=== PATIENT | male | born 1950 | race Caucasian/White ===

== ENCOUNTER 2017-09-09 08:46 | Day surgery (SDC) | payer MEDICARE, OTHER ==
[~2017-09-09 08:46] MED LIST: Lactated Ringers 1,000 ML IV SCH
[2017-09-09] MEDS ORDERED: fentaNYL 100 MCG/2 ML SDV ONE (10:38)
[2017-09-09] MEDS ORDERED: Propofol 200 MG/20 ML SDV ONE (10:39)
--- NOTE | 2017-09-09 17:49 | OR ---
PREOPERATIVE DIAGNOSIS: Positive FIT test. POSTOPERATIVE DIAGNOSIS: Positive FIT test. PROCEDURE PERFORMED: Colonoscopy with polypectomy at 30 cm. INDICATION: The patient is a 67-year-old male who had a recent FIT test that was positive, presents for colonoscopy for further evaluation. PROCEDURE IN DETAIL: This was done in the endoscopy suite and sedation was given per Anesthesia. He was placed in left lateral position. First, a rectal exam was done, it was normal. Scope was introduced into the rectum, slowly advanced to the rectum, sigmoid, descending, transverse, and ascending colon until the cecum was reached. Upon reaching the cecum, scope was slowly withdrawn looking all mucosal surfaces on the way out. No mucosal abnormalities, lesions, or polyps were noted until approximately 30 cm where 1 moderate-sized polyp was found. It was removed with a hot loop forceps and sent to pathology. The remainder of the exam was normal. FINAL DIAGNOSIS: Polyp at 30 cm. BKD: 09/09/2017 12:07:00 MODL: 09/09/2017 17:23:47 /[id number]
== END 2017-09-09 13:10 | disposition home or self-care (01) ==
LOC: VM.SDS 08:46 → MERGE 08:46 → VM.SDS 13:10
PROVIDERS: ATTEND Surgery
DX: D12.6 Benign neoplasm of colon, unspecified (principal); F17.200 Nicotine dependence, unspecified, uncomplicated
CPT/HCPCS: 45384; 88305; J2704; J3010; J7120